=== PATIENT | female | born 1995 | race Caucasian/White ===

== ENCOUNTER 2019-08-01 15:54 | Emergency (ER) | payer BC ==
[~2019-08-01] VITALS: Ht 157.5 cm; Wt 99.8 kg
[~2019-08-01 15:54] MED LIST: BACTRIM DS TAB1 EACH PO; DOXYCYCLINE 10100 MG; HYDROCODONE-AP1 EAC6 PO; IBUPROFEN 400400 M1 PO
[2019-08-01 17:04] LABS: HEMATOCRIT 43.2 % (37.0-47.0); HEMOGLOBIN 14.3 gm/dL (12.0-15.0); MCH 29.5 pg (26.0-34.0); MCV 89.3 fL (80.0-100.0); RBC 4.84 mil/uL (4.20-5.00); RDW 13.3 % (10.5-14.5); WBC 6.6 thou/uL (4.0-11.0)
[2019-08-01 17:12] LABS: CREATININE 0.7 mg/dL (0.6-1.0); POTASSIUM 3.2 mmol/L (3.5-5.1)
[2019-08-01 17:18] LABS: ALBUMIN 3.7 g/dL (3.4-5.0); TOTAL BILIRUBIN 0.7 mg/dL (<0.1-1.0); TOTAL PROTEIN 7.9 g/dL (6.4-8.2)
[2019-08-01 18:36] VITALS: BP 110/72
== END 2019-08-01 18:36 | disposition home or self-care (01) ==
LOC: ER 15:54
PROVIDERS: Nurse Practitioner
DX: R07.89 Other chest pain (principal); Z91.011 Allergy to milk products; Z91.018 Allergy to other foods; Z91.013 Allergy to seafood